=== PATIENT | female | born 1980 | race Caucasian/White ===

== ENCOUNTER 2021-03-17 23:02 | Emergency (ER) | payer OTHER, MEDICAID ==
[~2021-03-17] VITALS: Ht 160 cm; Wt 111.0 kg
[2021-03-17 23:50] VITALS: BP 140/80
--- NOTE | 2021-03-18 00:06 | PHYS DOC ---
Past Medical History Past Medical History: Liver Disease (BREANNA ARAGON APRN) General Adult EDM: Chief Complaint: FLANK PAIN HPI: HPI: Patient is a 40 year old female with history of liver disease presenting today to be evaluated for chronic "side pain". Patient states this has been going on for 6 months. She states she was seen in [place] and was told she has liver disease. She states she had hepatitis testing done and it was negative. She states her liver enzymes have been elevated for years. She states today she checked into be seen because her friend was brought to the ED by EMS and she thought while she is waiting for her friend she can get her liver checked to make sure it did not get worse. Patient denies any alcohol use Patient started demanding we tell her what room her friend is. We tried explaining to help with the RN (Enriqueta) we cannot reveal any patient information because of HIPAA rules. She started cursing. She was advised to come down or we called security. (BREANNA ARAGON APRN) Review of Systems: Review of Systems: Constitutional: Denies fever or chills. [] Eyes: Denies change in visual acuity. [] HENT: Denies nasal congestion or sore throat. [] Respiratory: Denies cough or shortness of breath. [] Cardiovascular: Denies chest pain or edema. [] GI: Reports chronic right side pain, denies nausea, vomiting, bloody stools or diarrhea. [] : Denies dysuria. [] Musculoskeletal: Denies back pain or joint pain. [] Integument: Denies rash. [] Neurologic: Denies headache, focal weakness or sensory changes. [] Psychiatric: Denies depression or anxiety. [] (BREANNA ARAGON RAIL CAR REPAIRER) Heart Score: C/O Chest Pain: N/A Risk Factors: Risk Factors: DM, Current or recent (<one month) smoker, HTN, HLP, family history of CAD, obesity. Risk Scores: Score 0 - 3: 2.5% MACE over next 6 weeks - Discharge Home Score 4 - 6: 20.3% MACE over next 6 weeks - Admit for Clinical Observation Score 7 - 10: 72.7% MACE over next 6 weeks - Early Invasive Strategies (BREANNA ARAGON APRN) Physical Exam: PE: Constitutional: Well developed, well nourished, no acute distress, non-toxic appearance. [] HENT: Normocephalic, atraumatic, bilateral external ears normal, oropharynx moist, no oral exudates, nose normal. [] Eyes: PERRLA, EOMI, conjunctiva normal, no discharge. [] Neck: Normal range of motion, no tenderness, supple, no stridor. [] Cardiovascular:Heart rate regular rhythm, no murmur [] Lungs & Thorax: Bilateral breath sounds clear to auscultation [] Abdomen: Bowel sounds normal, soft, no tenderness, no masses, no pulsatile masses. [] Skin: Warm, dry, no erythema, no rash. [] Back: No tenderness, no CVA tenderness. [] Extremities: No tenderness, no cyanosis, no clubbing, ROM intact, no edema. [] Neurologic: Alert and oriented X 3, normal motor function, normal sensory function, no focal deficits noted. [] Psychologic: Flat affect, mean (BREANNA ARAGON APRN) EKG: EKG: [] (BREANNA ARAGON APRN) Radiology/Procedures: Radiology/Procedures: [] (BREANNA ARAGON APRN) Radiology/Procedures: IMAGING REPORT Signed PATIENT: TUNDE JACKMAN ACCOUNT: [id number] : 1980 LOCATION: ER AGE: 40 SEX: F EXAM STATUS: REG ER ORD. PHYSICIAN: BREANNA ARAGON APRN REASON: chronic flank pain hx of liver disease PROCEDURE: CT ABDOMEN PELVIS WO CONTRAST INDICATION: Reason: chronic flank pain hx of liver disease / Spl. Instructions: / History: COMPARISON: None TECHNIQUE: Axial CT images were obtained through the abdomen and pelvis without intravenous contrast. One or more of the following individualized dose reduction techniques were utilized for this examination: 1. Automated exposure control; 2. Adjustment of the mA and/or kV according to patient size; 3. Use of iterative reconstruction technique. FINDINGS: Vascular: No abdominal aortic aneurysm. Hepatobiliary: Liver is low density. Nonspecific but can be seen with fatty infiltration. Gallbladder is contracted with some probable focal fatty sparing adjacent. Pancreas: Prominent appearance. Spleen: Spleen unremarkable. Renal/Bladder: Urinary bladder has minimal urine within it at time of exam. 1 mm nonobstructive right renal stone. No hydronephrosis. Calcifications within the pelvis most likely from phleboliths given the lack of hydronephrosis. Gastrointestinal: Surgical clips right lower quadrant. No dilated loops of bowel to suggest obstruction. There are some prominent lymph nodes in the upper abdomen in the portacaval region. Nonspecific appearance but could be related to adjacent liver disease. Degenerative changes spine. Sclerosis at the right sacroiliac joint could be degenerative in nature. Could also be from chronic sacroiliitis. IMPRESSION: * No hydronephrosis or radiopaque obstructive ureter stone. * Prominence of the pancreas. Would correlate with symptoms and lab markers to ensure this is not from mild pancreatitis. There is some adjacent prominent lymph nodes. * Fatty infiltration of the liver. Electronically signed by: Raheem Agee MD (03/18/2021 12:51 AM) DESKTOP- [id number] DICTATED and SIGNED BY: RAHEEM AGEE MD DATE: 03/18/21 [id number] (JAYLA URENA DO) Course & Med Decision Making: Course & Med Decision Making Pertinent Labs and Imaging studies reviewed. (See chart for details) This is a 40-year-old female patient with history of chronic liver disease, chronic elevated liver enzymes presenting today requesting work-up to make sure her liver disease is not getting worse. Unfortunately patient has another friend that is supposedly in the ED and was demanding we give out information about her friend. We refused and she started cursing. [address] Urena pending CT of the abdomen and pelvis, and lab work (BREANNA ARAGON APRN) Course & Med Decision Making Patient presents to the ED with complaints of chronic side pain that is located in the lateral region of her right upper quadrant. Liver functions have returned to normal. CT imaging concerning for fatty liver and possible pancreatitis, normal lipase on labs. I reevaluated patient and she was resting comfortably. Patient sat up and states she has no active abdominal or back pain. Is happy to hear the results, says "thanks melissa," and feels well to return home. Patient hemodynamically stable. UA unremarkable and drug screen positive for marijuana-incidental finding. Will discharge home with strict ED return precautions were given for worsening pain, fever or bleeding. Encouraged urgent outpatient follow-up with PMD for routine care and hepatology for definitive management of liver disease. Life-threatening processes were considered but are low suspicion at this time, given history, physical exam and ED workup. Pt was educated on all prescription medications and adverse effects. All patient's questions were answered and pt was stable at time of discharge. Life/limb-threatening differential includes but is not limited to, aortic dissection, aortic aneurysm, acute coronary syndrome, surgical abdomen (appendicitis, cholecystitis, ischemic bowel, strangulated hernia, etc), bowel obstruction or volvulus, bladder outlet obstruction, gastrointestinal bleeding, inflammatory bowel disease, peptic ulcer disease, ACS/CAD, sepsis, diverticular disease, ureterolithiasis, nephrolithiasis, ovarian or testicular torsion, ectopic , vaginal hemorrhage, or genitourinary infection. I have spoken with the patient and/or caregivers. I explained the patient's condition, diagnoses and treatment plan based on the information available to me at this time. I have answered the patient and/or caregiver's questions and addressed any concerns. The patient and/or caregivers have a good understanding of patient's diagnosis, condition and treatment plan as can be expected at this point. Vital signs have been stable. Patient's condition is stable and appropriate for discharge from the emergency department. Patient will pursue further outpatient evaluation with primary care physician or other designated or consulting physician as outlined in the discharge instructions. The patient and/or caregivers are agreeable to this plan of care and follow-up instructions have been explained in detail. The patient and/or caregivers have received these instructions in written form and have expressed an understanding of the discharge instructions. The patient and/or caregivers are aware that any significant change of condition or worsening of symptoms should prompt immediate return to this or the closest emergency department or call to 911. (JAYLA URENA DO) [place] Disclaimer: Yudelka Disclaimer: This electronic medical record was generated, in whole or in part, using a voice recognition dictation system. (BREANNA ARAGON RAIL CAR REPAIRER) Departure Departure Impression: Primary Impression: Right flank pain Additional Impression: Fatty liver Disposition: HOME / SELF CARE / HOMELESS Condition: STABLE Referrals: NO PCP (PCP) Follow-up with your primary care physician in 24 to 48 hours OR FOLLOW UP WITH FAMILY MEDICINE: [address], [address] [place] [address] Patient Instructions: Abdominal Pain (Nonspecific), Liver Disease Diet Additional Instructions: FOLLOW UP WITH HEPATOLOGY: FOR DEFINITIVE MANAGEMENT of fatty liver disease [facility]at[facility] Clinic [facility] [address] [place] [address] to schedule appointment: [phone] EMERGENCY DEPARTMENT GENERAL DISCHARGE INSTRUCTIONS Thank you for coming to [facility] Emergency Department (ED) today and trusting us with you care. We trust that you had a positive experience in our Emergency Department. If you wish to speak to the department management, you may call the Director at [phone]. YOUR FOLLOW UP INSTRUCTIONS ARE FOLLOWS: 1. Do you have a private Doctor? If you do not have a private doctor, please ask for a resource list of physicians or clinics that may be able to assist you with follow up care. 2. The Emergency Physicain has interpreted your x-rays. The X-Ray specialist will also review them. If there is a change in the findings, you will be notified in 48 hours when at all possible. 3. A lab test or culture has been done, your results will be reviewed and you will be notified if you need a change in treatment. ADDITIONAL INSTRUCTIONS AND INFORMATION: 1. Your care today has been supervised by a physician who is specially trained in emergency care. Many problems require more than one evaluation for a complete diagnosis and treatment. We recommend that you schedule your follow up appointment as recommended to ensure complete treatment of you illness or injury. If you are unable to obtain follow up care and continue to have a problem, or if your condition worsens, we recommend that you return to the ED. 2. We are not able to safely determine your condition over the phone nor are we able to give sound medical advice over the phone. For these safety reasons, if you call for medical advice we will ask you to come to the ED for further evaluation. 3. If you have any questions regarding these discharge instructions please call the ED at [phone]. SAFETY INFORMATION: In the interest of safety, wellness, and injury prevention; we encourage you to wear your sealbelt, if you smoke; quite smoking, and we encourage family to use a protective helmet for bicycling and other sporting events that present an increased risk for head injury. IF YOUR SYMPTOMS WORSEN OR NEW SYMPTOMS DEVELOP, OR YOU HAVE CONCERNS ABOUT YOUR CONDITION; OR IF YOUR CONDITION WORSENS WHILE YOU ARE WAITING FOR YOUR FOLLOW UP APPOINTMENT; EITHER CONTACT YOUR PRIMARY CARE DOCTOR, THE PHYSICIAN WHOSE NAME AND NUMBER YOU WERE GIVEN, OR RETURN TO THE ED IMMEDIATELY. BREANNA ARAGON APRN Mar 18, 2021 00:06 JAYLA URENA DO Mar 18, 2021 02:30
[2021-03-18 00:51] LABS: BILIRUBIN,URINE NEGATIVE (NEG); CLARITY,URINE CLEAR; COLOR,URINE YELLOW; NITRITE,URINE NEGATIVE (NEG); PH,URINE 5.5 (<5.0-8.0); PROTEIN,URINE 30 mg/dL (NEG-TRACE); UROBILINOGEN,URINE 0.2 mg/dL (0.2 mg/dL)
[2021-03-18 00:54] LABS: BASO # 0.1 x10^3/uL (0.0-0.2); BASO % 1 % (0-3); EOS # 0.1 x10^3/uL (0.0-0.7); EOS % 1 % (0-3); HEMATOCRIT 38.2 % (36.0-47.0); HEMOGLOBIN 12.9 g/dL (12.0-15.5); LYMPH # 2.9 x10^3/uL (1.0-4.8); LYMPH % 33 % (24-48); MEAN CORPUSCULAR HEMOGLOBIN 28 pg (25-35); MEAN CORPUSCULAR HGB CONC 34 g/dL (31-37); MEAN CORPUSCULAR VOLUME 81 fL (79-100); MONO # 0.6 x10^3/uL (0.0-1.1); MONO % 7 % (0-9); NEUT % 59 % (31-73); PLATELET COUNT 341 x10^3/uL (140-400); RED BLOOD COUNT 4.71 x10^6/uL (3.50-5.40); RED CELL DISTRIBUTION WIDTH 14.1 % (11.5-14.5); WHITE BLOOD COUNT 8.6 x10^3/uL (4.0-11.0)
--- NOTE | 2021-03-18 00:54 | RAD ---
INDICATION: Reason: chronic flank pain hx of liver disease / Spl. Instructions: / History: COMPARISON: None TECHNIQUE: Axial CT images were obtained through the abdomen and pelvis without intravenous contrast. One or more of the following individualized dose reduction techniques were utilized for this examinat ion: 1. Automated exposure control; 2. Adjustment of the mA and/or kV according to patient size; 3 . Use of iterative reconstruction technique. FINDINGS: Vascular: No abdominal aortic aneurysm. Hepatobiliary: Liver is low density. Nonspecific but can be seen with fatty infiltration. Gallbladder is contracted with some probable focal fatty sparing adjacent. Pancreas: Prominent appearance. Spleen: Spleen unremarkable. Renal/Bladder: Urinary bladder has minimal urine within it at time of exam. 1 mm nonobstructive right renal stone. No hydronephrosis. Calcifications within the pelvis most likely from phleboliths given the lack of hydronephrosis. Gastrointestinal: Surgical clips right lower quadrant. No dilated loops of bowel to suggest obstructi on. There are some prominent lymph nodes in the upper abdomen in the portacaval region. Nonspecific appea darrin but could be related to adjacent liver disease. Degenerative changes spine. Sclerosis at the right sacroiliac joint could be degenerative in nature. Could also be from chronic sacroiliitis. IMPRESSION: * No hydronephrosis or radiopaque obstructive ureter stone. * Prominence of the pancreas. Would correlate with symptoms and lab markers to ensure this is not fr om mild pancreatitis. There is some adjacent prominent lymph nodes. * Fatty infiltration of the liver. Electronically signed by: Ankur Love MD (03/18/2021 12:51 AM) [id number]
[2021-03-18 00:59] LABS: CALCIUM 9.3 mg/dL (8.5-10.1); GFR 62.1; POTASSIUM 3.5 mmol/L (3.5-5.1)
[2021-03-18 01:05] LABS: ALBUMIN 3.7 g/dL (3.4-5.0); TOTAL BILIRUBIN 0.5 mg/dL (0.2-1.0); TOTAL PROTEIN 7.3 g/dL (6.4-8.2)
[2021-03-18 01:22] LABS: BACTERIA,URINE 0 /HPF (0-FEW); RBC,URINE 0 /HPF (0-2); WBC,URINE OCC /HPF (0-4)
[2021-03-18 01:28] LABS: BARBITURATES NEG (NEG); BENZODIAZEPINES NEG (NEG); CANNABINOIDS POS (NEG); COCAINE NEG (NEG); METHADONE NEG (NEG); OPIATES NEG (NEG); PHENCYCLIDINE NEG (NEG)
[2021-03-18 01:44] LABS: AMPHETAMINE/METHAMPHETAMINE NEG (NEG)
== END 2021-03-18 02:35 | disposition home or self-care (01) ==
LOC: ER 23:02
DX: R10.9 Unspecified abdominal pain (principal); G89.29 Other chronic pain; K76.0 Fatty (change of) liver, not elsewhere classified
CPT/HCPCS: 36415; 74176; 80053; 80307; 81001; 83690; 85025; 99284; G0480